=== PATIENT | male | born 1995 | race African-American/Black ===

== ENCOUNTER 2016-08-17 22:44 | Emergency (ER) | payer SELFPAY ==
[2016-08-17 22:56] VITALS: BP 118/73
[2016-08-18 01:44] LABS: C. TRACHOMATIS BY PCR NOT DETECTED; N. GONORRHOEAE BY PCR NOT DETECTED
[2016-08-18] MEDS ORDERED: Naproxen 500 MG Tab PO ONE (02:03)
--- NOTE | 2016-08-18 02:06 | EDM.PDOC ---
ED HPI RENAL/ - General Chief Complaint: Genitourinary Problem Stated Complaint: POSS STD Time Seen by Provider: 08/17/16 23:04 Source of Information: Reports: Patient, RN notes reviewed History Limitations: Reports: No limitations - History of Present Illness INITIAL COMMENTS - FREE TEXT/NARRATIVE: The patient states that he has had penile, scrotal, and testicular pain for the past 3 days. It is throbbing in character and is constant. He denies having any penile discharge, and denies dysuria. He states that he is asymptomatic for about the first 30 minutes after waking, but that his symptoms then bother him for the rest of the day. No recent fever. No prior similar symptoms. He states that he is sexually active, and had unprotected sex last week, about 3 days before his symptoms began. He is concerned that he has an STD. - Related Data Allergies/ADRs: Allergies Allergy/AdvReac Type Severity Reaction Status Date / Time No Known Allergies Allergy Verified 08/17/16 22:56 Home Meds: Home Meds . 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) ED ROS GENERAL - Review of Systems Review Of Systems: See Below Constitutional: Reports: no symptoms HEENT: Reports: No symptoms Respiratory: Reports: No Symptoms Cardiovascular: Reports: No symptoms Endocrine: Reports: no symptoms GI/Abdominal: Reports: No symptoms : Reports: no symptoms Musculoskeletal: Reports: no symptoms Skin: Reports: no symptoms Neurological: Reports: No Symptoms Psychiatric: Reports: No symptoms Hematologic/Lymphatic: Reports: no symptoms Immunologic: Reports: no symptoms ED EXAM, RENAL/ - Physical Exam Exam: See Below Exam Limited By: No limitations General Appearance: alert, WD/WN, no apparent distress (Male) Exam: No hernia, Normal inspection, Circumcised. No: Penile lesions, Rash, Scrotal swelling, Scrotum tenderness (L), Scrotum tenderness (R), Testicular mass, Testicular tenderness (L), Testicular tenderness (R), Urethral discharge Course - Vital Signs Last Recorded V/S: Last Vital Signs Temp 36.6 C 08/17/16 22:53 Pulse 62 08/17/16 22:53 Resp 16 08/17/16 22:53 BP 118/73 08/17/16 22:53 Pulse Ox 100 08/17/16 22:53 - Orders/Labs/Meds Labs: Laboratory Tests 08/17/16 Range/Units 00:00 C trachomatis DNA (PCR) Not detected N gonorrhoeae DNA (PCR) Not detected Meds: Medications Discontinued Medications Generic Name Dose Route Start Last Admin Trade Name Migdalia PRN Reason Stop Dose Admin Naproxen 500 mg 08/18/16 02:03 08/18/16 02:11 Naprosyn PO 08/18/16 02:04 500 mg ONETIME ONE Administration - Re-Assessments/Exams Free Text/Narrative Re-Assessment/Exam: 08/18/16 02:00 Test results discussed with the patient. Today's workup is unremarkable, and I cannot explain the cause of the patient's pain. I suspect that there may be a nerve damage component, therefore I will refer the patient to a Urologist. The patient was asking about and antibiotic, however, I see no sign of infection, and, as above, his GC and Chlamydia are negative, therefore I do not see an indication for antibiotics at this time. He was asking about something for pain - I will prescribe naproxen by [facility]. Departure - Departure Time of Disposition: 02:01 Disposition: Home, Self-Care 01 Condition: good Clinical Impression: Pain of male genitalia Referrals: PCP,None [Primary Care Provider] - Christian Macias MD [Physician] - Forms: ED Department Discharge Additional Instructions: You were seen in the emergency room for penile scrotal, and testicular pain. Workup in the ER included a gonorrhea and Chlamydia test. Both were negative. The cause of your pain is not known. We are recommending that you followup with the Urologist Dr. Macias for further evaluation. You have been started on the pain medicine naproxen. Take one tablet every 12 hours, with food, as prescribed. If any other problems, please do not hesitate to return to the ER.
== END 2016-08-18 02:15 | disposition home or self-care (01) ==
LOC: JD.ED 22:44
DX: N50.89 Other specified disorders of the male genital organs (principal)
CPT/HCPCS: 87491; 87591; 99284; A9270; 99282